=== PATIENT | female | born 1950 ===

== ENCOUNTER 2024-12-06 07:55 | Day surgery (SDC) | payer OTHER ==
[2024-12-06] MEDS ORDERED: fentaNYL CITRATE 50 MCG/ML AMPUL IV PUSH ONE (13:00)
[2024-12-06] MEDS ORDERED: DIPHENHYDRAMINE HCL 50 MG/ML VIAL 1ML IV ONE (13:00)
[2024-12-06] MEDS ORDERED: MIDAZOLAM HCL 2 MG/2 ML VIAL IV ONE (13:00)
== END 2024-12-06 14:10 | disposition home or self-care (01) ==
LOC: AMB-ENDOS 07:55
PROVIDERS: ATTEND Surgery
DX: K57.30 Diverticulosis of large intestine without perforation or abscess without bleeding (principal); Z88.6 Allergy status to analgesic agent